=== PATIENT | male | born 1995 | race Caucasian/White ===

== ENCOUNTER 2018-12-27 23:57 | Emergency (ER) | payer OTHER, SELFPAY ==
[2018-12-28] MEDS ORDERED: NA CHLORIDE 0.9% 1,000 ML ONE (00:44)
[2018-12-28 00:54] LABS: Basophils % 0.4 % (0-1.3); Hematocrit 47.5 % (39.6-49.0); Lymphocytes % 25.8 % (15.3-44.8); MPV 9.7 fL (7.6-11.3); RBC Red Blood Cell Count 5.34 M/uL (4.33-5.43)
[2018-12-28 00:57] LABS: Protime INR 0.92
[2018-12-28 01:01] LABS: Barbiturates NEGATIVE (NEGATIVE); Benzodiazepines NEGATIVE (NEGATIVE); Cocaine NEGATIVE (NEGATIVE); METHAMPHETAM NEGATIVE (NEGATIVE); Methadone NEGATIVE (NEGATIVE); Opiates NEGATIVE (NEGATIVE); Phencyclidine NEGATIVE (NEGATIVE); THC Cannibis NEGATIVE (NEGATIVE)
[2018-12-28 01:11] LABS: ALT/SGPT 64 U/L (12-78); AST/SGOT 31 U/L (15-37); Albumin 4.5 g/dL (3.4-5.0); Alkaline Phosphatase 72 U/L (45-117); BUN Blood Urea Nitrogen 6 mg/dL (7-18); Bicarbonate 27 mmol/L (21-32); Bilirubin Direct 0.1 mg/dL (0-0.2); Bilirubin Total 0.5 mg/dL (0.2-1.0); Glucose Level 118 mg/dL (74-106); Potassium 3.9 mmol/L (3.5-5.1); Protein, Total 7.9 g/dL (6.4-8.2); Sodium Level 142 mmol/L (136-145)
[2018-12-28 01:14] LABS: Urine Blood NEGATIVE (NEG); Urine Glucose TRACE (NEG); Urine Protein NEGATIVE (NEG)
--- NOTE | 2018-12-28 02:22 | ER ---
Nurse's Notes [facility] Name: Rudy Martínez Age: 23 yrs Sex: Male : 1995 Arrival Date: 12/28/2018 Time: 00:03 Bed 8 Private MD: Diagnosis: Suicidal ideations-resolved;Alcohol abuse with intoxication Presentation: 12/28 00:00 Presenting complaint: Patient states: that he found out that his was cheating on him and she wanted to leave. He had been drinking today after having no alcohol for the past 8 weeks. He then stated that he did not want to live. Pt has had 10 beers tonight. Transition of care: patient was not received from another setting of care. Onset of symptoms was December 27, 2018. Risk Assessment: Do you want to hurt yourself or someone else? Patient reports desire/thoughts of hurting themselves or someone else. Provider notified. Initial Sepsis Screen: Does the patient meet any 2 criteria? HR > 90 bpm. Yes Does the patient have a suspected source of infection? No. Patient's initial sepsis screen is negative. Care prior to arrival: None. 00:00 Method Of Arrival: Law Enforcement: [facility] [place] 00:00 Acuity: JORGE 2 fc Historical: - Allergies: 00:20 PENICILLINS; fc - Home Meds: 00:20 None [Active]; fc - PMHx: 00:20 ADD/ADHD; Depression; Alcoholism; fc - PSHx: 00:20 Hernia repair; fc - Immunization history:: Last tetanus immunization: up to date Flu vaccine is not up to date. - Social history:: Smoking status: Patient uses tobacco products, smokes one pack cigarettes per day. Patient uses alcohol, today but prior had been alchohol free x 8 weeks. Was previously a daily drinker. - Ebola Screening: : Patient negative for fever greater than or equal to 101.5 degrees Fahrenheit, and additional compatible Ebola Virus Disease symptoms Patient denies exposure to infectious person Patient denies travel to an Ebola-affected area in the 21 days before illness onset. - Family history:: not pertinent. Screenin:00 Abuse screen: Denies threats or abuse. Nutritional screening: No deficits noted. Tuberculosis screening: No symptoms or risk factors identified. Fall Risk None identified. Assessment: 00:30 General: Appears in no apparent distress. comfortable, well groomed, Behavior is calm, jd3 cooperative, appropriate for age. Pain: Denies pain. Neuro: Level of Consciousness is awake, alert, obeys commands, Oriented to person, place, time, situation. Cardiovascular: Denies chest pain, Capillary refill < 3 seconds Patient's skin is warm and dry. Rhythm is regular. Respiratory: Airway is patent Respiratory effort is even, unlabored, Respiratory pattern is regular, symmetrical, Denies cough, shortness of breath. GI: No signs and/or symptoms were reported involving the gastrointestinal system. Patient currently denies constipation, diarrhea, nausea, vomiting. : No signs and/or symptoms were reported regarding the genitourinary system. EENT: No signs and/or symptoms were reported regarding the EENT system. Derm: Skin is intact, Skin is dry, Skin is normal, Skin temperature is warm. Musculoskeletal: Circulation, motion, and sensation intact. Range of motion: intact in all extremities. 01:00 Reassessment: Patient appears in no apparent distress at this time. No changes from jd3 previously documented assessment. Patient and/or family updated on plan of care and expected duration. Pain level reassessed. Patient is alert, oriented x 3, equal unlabored respirations, skin warm/dry/pink. 02:00 Reassessment: Patient appears in no apparent distress at this time. Patient and/or jd3 family updated on plan of care and expected duration. Pain level reassessed. Patient is alert, oriented x 3, equal unlabored respirations, skin warm/dry/pink. provider at bedside discussing plan of care. 02:29 Reassessment: Patient appears in no apparent distress at this time. Patient and/or jd3 family updated on plan of care and expected duration. Pain level reassessed. Patient is alert, oriented x 3, equal unlabored respirations, skin warm/dry/pink. Patient states feeling better. Psych: 00:00 Safety Checks: Personal items have been removed. Door is open. No visitors are present fc at this time. Patient uses 10 beers today of beer, daily until 8 weeks ago then drank again today Last use was 2 hours ago. 00:21 Subjective: Patient's mood is sad, Delusions are denied, Hallucinations are denied fc Having thoughts of suicide. Plan for suicide is drink self to . Objective: Patient is cooperative, Speech is normal, Affect is appropriate. Interventions: Removed personal items and placed in bag. Patient placed in hospital gown. Searched person for dangerous items. Suicide Risk Assessment: Sad Person Scale: Sex of patient: Male: Score 1 point. Age of patient: Score 1 point if patient 15-34. Depression: Score 1 point if signs of depression are present. Previous Attempt: Score 1 point if patient has previously attempted suicide. Substance Abuse: Score 1 point if patient abuses alcohol or drugs. Rational Thinking: Score 0 point if patient has rational thinking. Social Support: Score 0 if social support is present/available. Organized Plan: Score 1 point if patient had a plan in place. Relationship: Score 0 point if patient has a spouse or domestic partner. Chronic Sickness: Score 0 point if patient does not have a chronic illness, debilitating, or severe disorder. TOTAL POINTS: If total points are 5-6, proposed clinical action is to strongly consider hospitalization, depending upon confidence in the follow-up arrangement. Implement suicide precautions. 02:28 Commitment: pt discharged. jd3 Vital Signs: 00:00 BP 129 / 89; Pulse 96; Resp 20; Temp 98.2(O); Pulse Ox 99% on R/A; Weight 90.72 kg (R); fc Height 5 ft. 11 in. (180.34 cm) (R); Pain 0/10; 02:24 BP 122 / 82; Pulse 95; Resp 18; Temp 98.2(O); Pulse Ox 100% on R/A; oe 00:00 Body Mass Index 27.89 (90.72 kg, 180.34 cm) ED Course: 00:00 Safety Checks: Personal items have been removed. The door is open or patient has been jd3 placed in a hallway bed/chair. There are no family/friend visitors at this time Sitter present at this time. 00:00 Arm band placed on Patient placed in an exam room, on a stretcher. 00:00 Patient has correct armband on for positive identification. Placed in gown. Bed in low fc position. Call light in reach. 00:03 Patient arrived in ED. 00:11 Mario Alberto Hammonds MD is Attending Physician. [facility] 00:15 Safety Checks: Personal items have been removed. The door is open or patient has been jd3 placed in a hallway bed/chair. There are no family/friend visitors at this time Sitter present at this time. 00:18 Triage completed. fc 00:24 Merrick Pérez RN is Primary Nurse. jd3 00:30 Safety Checks: Personal items have been removed. The door is open or patient has been jd3 placed in a hallway bed/chair. There are no family/friend visitors at this time Sitter present at this time. 00:30 Safety checks: Items removed: yes. Door open/sign placed on door: yes. Family/friend oe present: no. Sitter present: Yes. 00:33 Inserted saline lock: 20 gauge in right antecubital area, using aseptic technique. jd3 Blood collected. 00:45 Safety Checks: Personal items have been removed. The door is open or patient has been jd3 placed in a hallway bed/chair. There are no family/friend visitors at this time Sitter present at this time. 00:45 Safety checks: Items removed: yes. Door open/sign placed on door: yes. Family/friend oe present: no. Sitter present: Yes. 01:00 Safety Checks: Personal items have been removed. The door is open or patient has been jd3 placed in a hallway bed/chair. There are no family/friend visitors at this time Sitter present at this time. 01:00 Safety checks: Items removed: yes. Door open/sign placed on door: yes. Family/friend oe present: no. Sitter present: Yes. 01:15 Safety Checks: Personal items have been removed. The door is open or patient has been jd3 placed in a hallway bed/chair. There are no family/friend visitors at this time Sitter present at this time. 01:15 Safety checks: Items removed: yes. Door open/sign placed on door: yes. Family/friend oe present: no. Sitter present: Yes. 01:30 Safety checks: Items removed: yes. Door open/sign placed on door: yes. Family/friend oe present: no. Sitter present: Yes. 01:45 Safety checks: Items removed: yes. Door open/sign placed on door: yes. Family/friend oe present: no. Sitter present: Yes. 02:00 Safety checks: Items removed: yes. Door open/sign placed on door: yes. Family/friend oe present: no. Sitter present: Yes. 02:15 Safety checks: Items removed: yes. Door open/sign placed on door: yes. Family/friend oe present: no. Sitter present: Yes. 02:28 No provider procedures requiring assistance completed. IV discontinued, intact, jd3 bleeding controlled, No redness/swelling at site. Pressure dressing applied. Administered Medications: 00:49 Drug: NS 0.9% 1000 ml Route: IV; Rate: 1 bolus; Site: right antecubital; jd3 02:29 Follow up: Response: No adverse reaction; IV Status: Completed infusion; IV Intake: jd3 1000ml Intake: 02:29 IV: 1000ml; Total: 1000ml. jd3 Outcome: 02:21 Discharge ordered by MD. elizalde 02:29 Discharged to home ambulatory, with family. jd3 02:29 Condition: stable 02:29 Discharge instructions given to patient, Instructed on discharge instructions, follow up and referral plans. Demonstrated understanding of instructions, follow-up care. 02:29 Patient left the ED. jd3 Signatures: Mario Alberto Hammonds MD MD cha Chretien, Felicia, RN RN Alexander Mathew Jonathon, RN RN jd3
--- NOTE | 2018-12-28 02:22 | EDPHYS ---
Physician Documentation [facility] Name: Rudy Martínez Age: 23 yrs Sex: Male : 1995 Arrival Date: 12/28/2018 Time: 00:03 Bed 8 Private MD: DANIEL Physician Mario Alberto Hammonds HPI: 12/28 02:16 This 23 yrs old Male presents to ER via Law Enforcement with complaints of tonio depressed, upset and suicidal. 02:16 The patient presents to the emergency department with suicide ideation, but the patient tonio has no formulated plan. Onset: The symptoms/episode began/occurred just prior to arrival. Past psychiatric history: Prior diagnosis: no previous psychiatric diagnosis known. sleeping with best friend. Associated signs and symptoms: Pertinent positives; suicide ideation. Onset: The symptoms/episode began/occurred 1 week(s) ago. Severity of symptoms: At their worst the symptoms were mild in the emergency department the symptoms have improved moderately. The patient has not experienced similar symptoms in the past. Historical: - Allergies: 00:20 PENICILLINS; fc - Home Meds: 00:20 None [Active]; fc - PMHx: 00:20 ADD/ADHD; Depression; Alcoholism; fc - PSHx: 00:20 Hernia repair; fc - Immunization history:: Last tetanus immunization: up to date Flu vaccine is not up to date. - Social history:: Smoking status: Patient uses tobacco products, smokes one pack cigarettes per day. Patient uses alcohol, today but prior had been alchohol free x 8 weeks. Was previously a daily drinker. - Ebola Screening: : Patient negative for fever greater than or equal to 101.5 degrees Fahrenheit, and additional compatible Ebola Virus Disease symptoms Patient denies exposure to infectious person Patient denies travel to an Ebola-affected area in the 21 days before illness onset. - Family history:: not pertinent. ROS: 02:16 Constitutional: Negative for fever, chills, and weight loss, Eyes: Negative for injury, tonio pain, redness, and discharge, ENT: Negative for injury, pain, and discharge, Neck: Negative for injury, pain, and swelling, Cardiovascular: Negative for chest pain, palpitations, and edema, Respiratory: Negative for shortness of breath, cough, wheezing, and pleuritic chest pain, Abdomen/GI: Negative for abdominal pain, nausea, vomiting, diarrhea, and constipation, Back: Negative for injury and pain, : Negative for injury, bleeding, discharge, and swelling, MS/Extremity: Negative for injury and deformity, Skin: Negative for injury, rash, and discoloration, Neuro: Negative for headache, weakness, numbness, tingling, and seizure, Allergy/Immunology: Negative for hives, rash, and allergies, Endocrine: Negative for neck swelling, polydipsia, polyuria, polyphagia, and marked weight changes, Hematologic/Lymphatic: Negative for swollen nodes, abnormal bleeding, and unusual bruising. 02:16 Psych: Positive for depression, suicidal ideation. Exam: 02:16 Constitutional: This is a well developed, well nourished patient who is awake, alert, tonio and in no acute distress. Head/Face: Normocephalic, atraumatic. Eyes: Pupils equal round and reactive to light, extra-ocular motions intact. Lids and lashes normal. Conjunctiva and sclera are non-icteric and not injected. Cornea within normal limits. Periorbital areas with no swelling, redness, or edema. ENT: Nares patent. No nasal discharge, no septal abnormalities noted. Tympanic membranes are normal and external auditory canals are clear. Oropharynx with no redness, swelling, or masses, exudates, or evidence of obstruction, uvula midline. Mucous membranes moist. Neck: Trachea midline, no thyromegaly or masses palpated, and no cervical lymphadenopathy. Supple, full range of motion without nuchal rigidity, or vertebral point tenderness. No Meningismus. Chest/axilla: Normal chest wall appearance and motion. Nontender with no deformity. No lesions are appreciated. Cardiovascular: Regular rate and rhythm with a normal S1 and S2. No gallops, murmurs, or rubs. Normal PMI, no JVD. No pulse deficits. Respiratory: Lungs have equal breath sounds bilaterally, clear to auscultation and percussion. No rales, rhonchi or wheezes noted. No increased work of breathing, no retractions or nasal flaring. Abdomen/GI: Soft, non-tender, with normal bowel sounds. No distension or tympany. No guarding or rebound. No evidence of tenderness throughout. Back: No spinal tenderness. No costovertebral tenderness. Full range of motion. Skin: Warm, dry with normal turgor. Normal color with no rashes, no lesions, and no evidence of cellulitis. MS/ Extremity: Pulses equal, no cyanosis. Neurovascular intact. Full, normal range of motion. Neuro: Awake and alert, GCS 15, oriented to person, place, time, and situation. Cranial nerves II-XII grossly intact. Motor strength 5/5 in all extremities. Sensory grossly intact. Cerebellar exam normal. Normal gait. Psych: Awake, alert, with orientation to person, place and time. Behavior, mood, and affect are within normal limits. Vital Signs: 00:00 BP 129 / 89; Pulse 96; Resp 20; Temp 98.2(O); Pulse Ox 99% on R/A; Weight 90.72 kg (R); fc Height 5 ft. 11 in. (180.34 cm) (R); Pain 0/10; 02:24 BP 122 / 82; Pulse 95; Resp 18; Temp 98.2(O); Pulse Ox 100% on R/A; oe 00:00 Body Mass Index 27.89 (90.72 kg, 180.34 cm) fc MDM: 00:11 Patient medically screened. [facility] 02:20 Data reviewed: vital signs, nurses notes, lab test result(s), EKG. [facility] 12/28 00:17 Order name: Acetaminophen; Complete Time: : [facility] 12/28 00:17 Order name: Basic Metabolic Panel; Complete Time: : [facility] 12/28 00:17 Order name: CBC with Diff; Complete Time: : [facility] 12/28 00:17 Order name: ETOH Level; Complete Time: : [facility] 12/28 00:17 Order name: Hepatic Function; Complete Time: : [facility] 12/28 00:17 Order name: PT-INR; Complete Time: : [facility] 12/28 00:17 Order name: Ptt, Activated; Complete Time: : [facility] 12/28 00:17 Order name: Salicylate; Complete Time: : [facility] 12/28 00:17 Order name: Urine Drug Screen; Complete Time: : [facility] 12/28 00:17 Order name: EKG; Complete Time: 00:18 [facility] 12/28 00:17 Order name: EKG - Nurse/Tech; Complete Time: 00:49 [facility] 12/28 00:17 Order name: IV Saline Lock; Complete Time: 00:49 [facility] 12/28 01:00 Order name: Urine Dipstick--Ancillary (enter results); Complete Time: 02:19 [facility]5 12/28 00:17 Order name: Labs collected and sent; Complete Time: 00:49 [facility] 12/28 00:17 Order name: Urine Dipstick-Ancillary (obtain specimen); Complete Time: 00:49 [facility] Administered Medications: 00:49 Drug: NS 0.9% 1000 ml Route: IV; Rate: 1 bolus; Site: right antecubital; jd3 02:29 Follow up: Response: No adverse reaction; IV Status: Completed infusion; IV Intake: jd3 1000ml Disposition: 12/28/18 02:21 Discharged to Home. Impression: Suicidal ideations - resolved, Alcohol abuse with intoxication. - Condition is Stable. - Discharge Instructions: Alcohol Intoxication, Suicidal Feelings: How to Help Yourself, Alcohol Abuse and Nutrition. - Medication Reconciliation Form, Thank You Letter, Antibiotic Education, Prescription Opioid Use form. - Follow up: Private Physician; When: 2 - 3 days; Reason: Recheck today's complaints, Continuance of care, Re-evaluation by your physician. - Problem is new. - Symptoms have improved. Signatures: Dispatcher [employer] EDMario Alberto England MD MD cha Chretien, Felicia RN RN Merrick Rose RN RN jd3 Corrections: (The following items were deleted from the chart) 02:29 02:21 12/28/2018 02:21 Discharged to Home. Impression: Suicidal ideations - resolved; jd3 Alcohol abuse with intoxication. Condition is Stable. Forms are Medication Reconciliation Form, Thank You Letter, Antibiotic Education, Prescription Opioid Use. Follow up: Private Physician; When: 2 - 3 days; Reason: Recheck today's complaints, Continuance of care, Re-evaluation by your physician. Problem is new. Symptoms have improved. tonio
[2018-12-28 03:00] VITALS: TEMP 98.2
[2018-12-28 03:03] VITALS: BP 122/82; O2SAT 100
--- NOTE | 2018-12-28 11:57 | EKG ---
Test Date: 2018-12-28 Test Time: 00:48:44 Phlebotomist: RANDI MEASUREMENT RESULTS: Intervals: Rate: 91 MT: 138 QRSD: 86 QT: 354 QTc: 435 Rudy: P: 61 MT: 138 QRS: 77 T: 32 INTERPRETIVE STATEMENTS: Normal sinus rhythm Normal ECG Compared to ECG 06/25/2016 05:06:38 Sinus tachycardia no longer present Electronically Signed On 12-28-18 11:56:36 CUSTOMS COMPLIANCE DIRECTOR by Geraldo Lopez
== END 2018-12-28 02:29 | disposition home or self-care (01) ==
LOC: ER 23:57
DX: F10.229 Alcohol dependence with intoxication, unspecified (principal); F17.210 Nicotine dependence, cigarettes, uncomplicated
CPT/HCPCS: 36415; 80048; 80076; 80307; 80320; 80329; 81003; 85025; 85610; 85730; 93005; 96360; 96361; 99284; J7030

== ENCOUNTER 2022-06-29 15:01 | Emergency (ER) | payer OTHER ==
[2022-06-29] MEDS ORDERED: NA CHLORIDE 0.9% 1,000 ML ONE (15:27)
[2022-06-29] MEDS ORDERED: IBUPROFEN 400 MG TAB ONE (15:27)
[2022-06-29 15:46] LABS: Absolute Lymphocytes (CBC) 0.8 K/uL (0.7-4.9); Hematocrit 44.1 % (39.6-49.0); Lymphocytes % 5.7 % (15.3-44.8); MCV 87.2 fL (80-100); MPV 9.3 fL (7.6-11.3); RBC Red Blood Cell Count 5.06 M/uL (4.33-5.43)
[2022-06-29 16:00] LABS: Potassium 3.7 mEq/L (3.5-5.1)
[2022-06-29] MEDS ORDERED: AZITHROMYCIN 250 MG TAB ONE (16:26)
--- NOTE | 2022-06-29 16:28 | ER ---
Nurse's Notes [facility] Name: Rudy Martínez Age: 27 yrs Sex: Male : 1995 Arrival Date: 06/29/2022 Time: 15:01 Bed 9 Private MD: Diagnosis: Streptococcal pharyngitis Presentation: 06/29 15:07 Chief complaint: Patient states: sore throat, fatigue, fever , started last night. iw Coronavirus screen: Client presents with at least one sign or symptom that may indicate coronavirus-19. Ebola Screen: Patient negative for fever greater than or equal to 101.5 degrees Fahrenheit, and additional compatible Ebola Virus Disease symptoms Patient denies exposure to infectious person. Patient denies travel to an Ebola-affected area in the 21 days before illness onset. No symptoms or risks identified at this time. Initial Sepsis Screen: Does the patient meet any 2 criteria? HR > 90 bpm. Does the patient have a suspected source of infection? No. Patient's initial sepsis screen is negative. Risk Assessment: Do you want to hurt yourself or someone else? Patient reports no desire to harm self or others. 15:07 Method Of Arrival: Ambulatory iw 15:07 Acuity: JORGE 3 iw Historical: - Allergies: 15:08 PENICILLINS; iw - PMHx: 15:08 ADD/ADHD; Alcoholism; Depression; iw Screenin:34 [facility] ED Fall Risk Assessment (Adult) History of falling in the last 3 months, mb9 including since admission No falls in past 3 months (0 pts) Confusion or Disorientation No (0 pts) Intoxicated or Sedated No (0 pts) Impaired Gait No (0 pts) Mobility Assist Device Used No (0 pt) Altered Elimination No (0 pt) Score/Fall Risk Level 0 - 2 = Low Risk Oriented to surroundings, Maintained a safe environment, Educated pt \T\ family on fall prevention, incl call for assistance when getting out of bed. Abuse screen: Denies threats or abuse. Nutritional screening: No deficits noted. Tuberculosis screening: No symptoms or risk factors identified. Assessment: 15:34 General: Appears in no apparent distress. Behavior is calm, cooperative, appropriate mb9 for age. Pain: Denies pain. Neuro: Bliss Agitation-Sedation Scale (RASS): 0 - Alert and Calm Level of Consciousness is awake, alert, obeys commands, Oriented to person, place, time, situation, Appropriate for age. Cardiovascular: Patient's skin is warm and dry. Respiratory: Reports cough that is non-productive, Airway is patent Respiratory effort is even, unlabored, Respiratory pattern is regular, symmetrical, Breath sounds are clear bilaterally. GI: Abdomen is flat, non-distended, Bowel sounds present X 4 quads. Abd is soft and non tender X 4 quads. Reports diarrhea. EENT: Oral mucosa is dry. Throat is reddened. Derm: Skin is pink, warm \T\ dry. Musculoskeletal: Range of motion: intact in all extremities. Vital Signs: 15:07 BP 124 / 74; Pulse 117; Resp 19; Temp 102.2; Pulse Ox 97% on R/A; iw 15:35 BP 118 / 74; Pulse 74; Resp 18; Pulse Ox 100% on R/A; mb9 16:20 BP 113 / 69; Pulse 98; Resp 16; Temp 99(O); Pulse Ox 98% on R/A; mb9 ED Course: 15:04 Patient arrived in ED. mr 15:05 Sofy Mary, ROMY is PHCP. kb 15:05 Jorge Quinonez MD is Attending Physician. kb 15:08 Triage completed. iw 15:08 Arm band placed on. iw 15:16 Alina Moctezuma, RN is Primary Nurse. mb9 15:34 Inserted saline lock: 22 gauge in left antecubital area, using aseptic technique. mb9 15:36 Placed in gown. Bed in low position. Call light in reach. Side rails up X 1. Client mb9 placed on continuous cardiac and pulse oximetry monitoring. NIBP monitoring applied. 15:36 No provider procedures requiring assistance completed. mb9 15:36 SARS-COV-2 Antigen Rapid Sent. mb9 15:36 Flu Sent. mb9 15:36 Strep Sent. mb9 15:36 Basic Metabolic Panel Sent. mb9 15:36 Weber Screen Profile Sent. mb9 15:36 CBC with Diff Sent. mb9 16:41 IV discontinued, intact, bleeding controlled, No redness/swelling at site. Pressure mb9 dressing applied. Administered Medications: 15:22 Drug: Ibuprofen PO 800 mg Route: PO; mb9 16:17 Follow up: Response: No adverse reaction mb9 15:30 Drug: NS 0.9% IV 1000 ml Route: IV; Rate: 1000 ml; Site: left antecubital; mb9 16:19 Drug: AZITHromycin PO 500 mg Route: PO; mb9 Medication: 15:34 VIS not applicable for this client. mb9 Outcome: 16:27 Discharge ordered by . kb 16:41 Discharged to home ambulatory. mb9 16:41 Condition: stable 16:41 Discharge instructions given to patient, Instructed on discharge instructions, follow up and referral plans. Demonstrated understanding of instructions, follow-up care, medications, Prescriptions given X 1. 16:41 Patient left the ED. mb9 Signatures: Sofy Mary, ROMY POLLACK-Alina Mondragon Irene, RN RN iw Breneman, Mary Beth, RN RN mb9
--- NOTE | 2022-06-29 16:28 | EDPHYS ---
Physician Documentation [facility] Name: Rudy Martínez Age: 27 yrs Sex: Male : 1995 Arrival Date: 06/29/2022 Time: 15:01 Bed 9 Private MD: ED Physician Jorge Quinonez HPI: 06/29 15:12 This 27 yrs old Male presents to ER via Ambulatory with complaints of Fever, fatigue. kb 15:12 The patient presents with sore throat. The patient describes throat pain as constant. kb Onset: The symptoms/episode began/occurred last night. Severity of symptoms: At their worst the symptoms were moderate, in the emergency department the symptoms are unchanged. Modifying factors: The symptoms are alleviated by nothing, the symptoms are aggravated by swallowing, Patient's oral intake status: good. Associated signs and symptoms: Pertinent positives: earache, fever, flu-like symptoms, malaise, Sore throat. The patient has not experienced similar symptoms in the past. The patient has not recently seen a physician. Historical: - Allergies: 15:08 PENICILLINS; iw - PMHx: 15:08 ADD/ADHD; Alcoholism; Depression; iw ROS: 15:11 Respiratory: Negative for shortness of breath, cough, wheezing, and pleuritic chest kb pain. 15:11 Constitutional: Positive for fatigue, fever, malaise. 15:11 ENT: Positive for ear pain, sore throat. 15:11 Abdomen/GI: Positive for diarrhea, Negative for abdominal pain, nausea and vomiting. 15:11 All other systems are negative. Exam: 15:11 Constitutional: This is a well developed, well nourished patient who is awake, alert, kb and in no acute distress. Head/Face: Normocephalic, atraumatic. Cardiovascular: Regular rate and rhythm with a normal S1 and S2. No gallops, murmurs, or rubs. No pulse deficits. Respiratory: Respirations even and unlabored. No increased work of breathing. Talking in full sentences Abdomen/GI: Soft, non-tender. No distention Skin: Warm, dry with normal turgor. Normal color. MS/ Extremity: Pulses equal, no cyanosis. Neurovascular intact. Full, normal range of motion. Neuro: Awake and alert, GCS 15, oriented to person, place, time, and situation. Moves all extremities. Normal gait. 15:11 ENT: External ear(s): are unremarkable, Ear canal(s): purulent discharge, that is moderate, in the left canal, swelling, that is minimal, of the left canal, TM's: are normal, Examination of the other ear shows no obvious abnormality, Posterior pharynx: Airway: normal, no evidence of obstruction, Tonsils: bilaterally enlarged, with erythema, Uvula: normal, midline, swelling, that is moderate, erythema, that is moderate, exudate, is not appreciated. Vital Signs: 15:07 BP 124 / 74; Pulse 117; Resp 19; Temp 102.2; Pulse Ox 97% on R/A; iw 15:35 BP 118 / 74; Pulse 74; Resp 18; Pulse Ox 100% on R/A; mb9 16:20 BP 113 / 69; Pulse 98; Resp 16; Temp 99(O); Pulse Ox 98% on R/A; mb9 MDM: 15:05 Patient medically screened. kb 15:12 Data reviewed: vital signs, nurses notes. kb 15:12 Differential diagnosis: pharyngitis, strep, covid, flu, tonsillitis, mono. kb 16:09 Counseling: I had a detailed discussion with the patient and/or guardian regarding: the kb historical points, exam findings, and any diagnostic results supporting the discharge/admit diagnosis, lab results, the need for outpatient follow up, a family practitioner, to return to the emergency department if symptoms worsen or persist or if there are any questions or concerns that arise at home. 06/29 15:11 Order name: Strep; Complete Time: 15:55 kb 06/29 15:11 Order name: Flu; Complete Time: 15:55 kb 06/29 15:11 Order name: SARS-COV-2 Antigen Rapid 06/29 15:11 Order name: CBC with Diff; Complete Time: 15:55 kb 06/29 15:11 Order name: Basic Metabolic Panel; Complete Time: 16:03 kb 06/29 15:11 Order name: Forest Screen Profile 06/29 15:11 Order name: IV Start; Complete Time: 15:36 kb Administered Medications: 15:22 Drug: Ibuprofen PO 800 mg Route: PO; mb9 16:17 Follow up: Response: No adverse reaction mb9 15:30 Drug: NS 0.9% IV 1000 ml Route: IV; Rate: 1000 ml; Site: left antecubital; mb9 16:19 Drug: AZITHromycin PO 500 mg Route: PO; mb9 Disposition Summary: 06/29/22 16:27 Discharge Ordered Location: Home kb Condition: Stable kb Diagnosis - Streptococcal pharyngitis kb Followup: kb - With: Emergency Department - When: As needed - Reason: Worsening of condition Followup: kb - With: Private Physician - When: 2 - 3 days - Reason: Recheck today's complaints, Continuance of care, Re-evaluation by your physician Discharge Instructions: - Discharge Summary Sheet kb - Strep Throat, Adult, [id number] kb Forms: - Medication Reconciliation Form kb - Thank You Letter kb - Antibiotic Education kb - Prescription Opioid Use kb Prescriptions: - Zithromax 500 mg Oral Tablet - take 1 tablet by ORAL route once daily for 4 days; 4 tablet; Refills: 0, kb Product Selection Permitted Signatures: Dispatcher [employer] Sofy Rudd, ROMY POLLACK-Demi Dyer, RN Alina Mackenzie RN RN mb9
[2022-06-29 16:50] VITALS: BP 113/69; TEMP 99; O2SAT 98
[2022-06-29 17:57] LABS: SARS-CoV-2 Antigen Rapid Res Negative (Negative)
== END 2022-06-29 16:41 | disposition home or self-care (01) ==
LOC: ER 15:01
DX: J02.0 Streptococcal pharyngitis (principal); F10.20 Alcohol dependence, uncomplicated; Z88.0 Allergy status to penicillin; Z20.822 Contact with and (suspected) exposure to COVID-19
CPT/HCPCS: 85025; 80048; 36415; 86308; 87081; 87804 ×2; 87811; J7030